=== PATIENT | female | born 1965 | race Two or more races ===

== ENCOUNTER → 2019-02-12 | Outpatient (CLI) | payer SELFPAY ==
--- NOTE | 2019-02-12 10:52 | REP ---
PA and lateral chest: There are no comparisons. The lung villa are clear. The cardiac size is normal. The georgina, mediastinum, and skeletal structures are unremarkable. Impression: Negative PA and lateral chest. Electronically Signed by Jordan Isaac MD 02/12/2019 10:44 A
== END ==
LOC: M LRY 10:22
PROVIDERS: ATTEND Nurse Practitioner Family
DX: R06.2 Wheezing (principal)

== ENCOUNTER → 2019-04-28 | Outpatient (REF) | payer OTHER ==
[2019-04-28 12:05] LABS: BASO # 0.1 10^3/uL (0.0-0.2); BASO % 1.6 % (0.0-1.0); EOS # 0.6 10^3/uL (0.0-0.5); EOS % 9.5 % (0.0-3.0); HEMOGLOBIN 17.1 g/dl (12.0-15.5); LYMPH # 2.4 10^3/uL (1.5-5.0); LYMPH % 37.4 % (24.0-44.0); MEAN CORPUSCULAR HEMOGLOBIN 29.6 pg (27.0-33.0); MEAN CORPUSCULAR HGB CONC 32.3 g/dl (32.0-36.5); MEAN CORPUSCULAR VOLUME 91.9 fl (80.0-96.0); MONO # 0.4 10^3/uL (0.0-0.8); MONO % 6.8 % (0.0-5.0); NEUTROPHILS # 2.9 10^3/uL (1.5-8.5); NEUTROPHILS % 44.4 % (36.0-66.0); PLATELET COUNT, AUTOMATED 390 10^3/uL (150-450); RED BLOOD COUNT 5.77 10^6/uL (4.00-5.40); WHITE BLOOD COUNT 6.5 10^3/uL (4.0-10.0)
[2019-04-28 12:31] LABS: BLOOD UREA NITROGEN 14 MG/DL (7-18); CALCIUM LEVEL 9.1 MG/DL (8.5-10.1); CARBON DIOXIDE LEVEL 26 MEQ/L (21-32); CHLORIDE LEVEL 108 MEQ/L (98-107); GLOMERULAR FILTRATION RATE > 60.0 (>51); GLUCOSE, FASTING 91 MG/DL (70-100); POTASSIUM SERUM 4.3 MEQ/L (3.5-5.1); SODIUM LEVEL 141 MEQ/L (136-145)
[2019-04-28 12:32] LABS: ALBUMIN 3.9 GM/DL (3.2-5.2); ALT/SGPT 24 U/L (12-78); BILIRUBIN,TOTAL 0.3 MG/DL (0.2-1.0); CHOLESTEROL LEVEL 217 MG/DL (<200); HDL CHOLESTEROL 38 MG/DL (>40); LDL CHOLESTEROL 138 MG/DL (<100); NON-HDL-C 179 MG/DL; TOTAL PROTEIN 8.2 GM/DL (6.4-8.2); TRIGLYCERIDES LEVEL 203 MG/DL (<150)
== END ==
LOC: M SFHCSACK 09:27
PROVIDERS: ATTEND Nurse Practitioner Family
DX: Z00.00 Encounter for general adult medical examination without abnormal findings (principal); Z13.1 Encounter for screening for diabetes mellitus; Z13.220 Encounter for screening for lipoid disorders

== ENCOUNTER → 2019-08-21 | Outpatient (CLI) | payer OTHER ==
--- NOTE | 2019-08-21 13:14 | REP ---
ULTRASOUND SOFT TISSUES NECK: Real-time sonographic evaluation of the soft tissues of the neck are performed with special attention paid to the soft tissues in the region of the left ear. At that location there is a heterogeneous mass measuring 5.6 x 3.8 x 5.4 cm. In the center there is heterogeneous hypoechoic echotexture. Several nonenlarged lymph nodes are seen in the adjacent soft tissues. No mass is seen in the right periauricular soft tissues. IMPRESSION: Heterogeneous mass in the soft tissues near the left ear. Centrally there is heterogeneous hypoechogenicity. The findings may represent an abscess. Recommend CT of the neck soft tissues with IV contrast to further evaluate. The mass measures 5.6 x 3.8 x 5.4 cm. Electronically Signed by Jordan Raines MD 08/21/2019 03:56 P
== END ==
LOC: M LRY 10:28
PROVIDERS: ATTEND Nurse Practitioner Family
DX: R22.1 Localized swelling, mass and lump, neck (principal)